=== PATIENT | female | born 1980 | race Caucasian/White ===

== ENCOUNTER 2018-11-25 14:01 | Emergency (ER) | payer MEDICAID ==
[2018-11-25 14:23] VITALS: BP 139/72
--- NOTE | 2018-11-25 14:46 | EDM.PDOC ---
ED HPI GENERAL MEDICAL PROBLEM - General Chief Complaint: ENT Problem Stated Complaint: TOOTH ACHE Time Seen by Provider: 11/25/18 14:40 Source of Information: Reports: Patient History Limitations: Reports: No Limitations - History of Present Illness INITIAL COMMENTS - FREE TEXT/NARRATIVE: pt arrived with a sore throat and painful lower molar that was filled 3 weeks ago. She has a very carrious upper molar that needs to be pulled and right now is painful. 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: Hematologic History: Reports: Blood Transfusion(s) - Infectious Disease History Infectious Disease History: Reports: Chicken Pox - Past Surgical History Female Surgical History: Reports: Section, Tubal Ligation Social & Family History - Tobacco Use Smoking Status *Q: Current Every Day Smoker Years of Tobacco use: 20 Packs/Tins Daily: 1 Used Tobacco, but Quit: No Second Hand Smoke Exposure: Yes - Caffeine Use Caffeine Use: Reports: Soda - Recreational Drug Use Recreational Drug Use: No ED ROS ENT - Review of Systems Review Of Systems: See Below Constitutional: Reports: No Symptoms HEENT: Reports: Dental Pain, Other ( sore throat. ) Respiratory: Reports: No Symptoms Cardiovascular: Reports: No Symptoms Endocrine: Reports: No Symptoms GI/Abdominal: Reports: No Symptoms : Reports: No Symptoms Musculoskeletal: Reports: No Symptoms Skin: Reports: No Symptoms ED EXAM, ENT - Physical Exam Exam: See Below Text/Narrative:: pt arrived with painful teeh. A right lower molar which was filled by Dr Erickson 3 weeks ago. She has a carrious rt upper molar that needs to be pulled She also has a sore throat on the rt side. Exam Limited By: No Limitations General Appearance: Alert, Anxious Ears: Normal TMs Nose: Normal Inspection Mouth/Throat: Other ( rt tonsil is red and swollen. ) Head: Atraumatic Neck: Normal Inspection Respiratory/Chest: No Respiratory Distress Course - Vital Signs Last Recorded V/S: Last Vital Signs Temp 36.3 C 11/25/18 14:21 Pulse 86 11/25/18 14:21 Resp 14 11/25/18 14:21 BP 139/72 11/25/18 14:21 Pulse Ox 96 11/25/18 14:21 - Orders/Labs/Meds Orders: Active Orders 24 hr Category Date Time Status CULTURE STREP A CONFIRMATION [RM] Stat Lab 11/25/18 15:03 Results STREP SCRN A RAPID W CULT CONF [RM] Stat Lab 11/25/18 15:03 Results - Re-Assessments/Exams Free Text/Narrative Re-Assessment/Exam: 11/25/18 15:19 strept was neg. Departure - Departure Time of Disposition: 15:17 Disposition: Home, Self-Care 01 Condition: Fair Clinical Impression: Acute bacterial pharyngitis, Infected tooth - Discharge Information Referrals: PCP,None [Primary Care Provider] - Forms: ED Department Discharge Care Plan Goals: referal to [facility] for Thursday. ., amoxicillin 500mg tid, tramodol 50 mg q6h for pain - My Orders Last 24 Hours: My Active Orders 11/25/18 15:03 CULTURE STREP A CONFIRMATION [RM] Stat STREP SCRN A RAPID W CULT CONF [RM] Stat - Assessment/Plan Last 24 Hours: My Active Orders 11/25/18 15:03 CULTURE STREP A CONFIRMATION [RM] Stat STREP SCRN A RAPID W CULT CONF [RM] Stat
== END 2018-11-25 15:36 | disposition home or self-care (01) ==
LOC: JP.ED 14:01
DX: K04.7 Periapical abscess without sinus (principal); J02.8 Acute pharyngitis due to other specified organisms; F17.210 Nicotine dependence, cigarettes, uncomplicated; Z88.1 Allergy status to other antibiotic agents
CPT/HCPCS: 87081; 87430; 99282

== ENCOUNTER 2020-02-04 19:29 | Emergency (ER) | payer MEDICAID ==
[2020-02-04 19:45] VITALS: BP 135/83; PULSE 92
[2020-02-04] MEDS ORDERED: Naproxen 250 MG Tab PO STA (20:14)
--- NOTE | 2020-02-04 20:14 | EDM.PDOC ---
ED HPI GENERAL MEDICAL PROBLEM - General Chief Complaint: ENT Problem Stated Complaint: BROKEN TOOTH/PAIN Time Seen by Provider: 02/04/20 20:03 Source of Information: Reports: Patient History Limitations: Reports: No Limitations - History of Present Illness INITIAL COMMENTS - FREE TEXT/NARRATIVE: Yvonne presents to [place] ER for evaluation of bilateral mouth pain. Left worse than right. Patient has two teeth chipped to gumline right and left upper premolar which have been bothersome for a few months. Patient has a new chipped tooth left lower jaw earlier this week which has been causing continued pain despite Tylenol and Ibuprofen on a regular basis. Patient has been unable to sleep due to pain the last few nights. 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 ED EXAM, ENT - Physical Exam Exam: See Below Exam Limited By: No Limitations General Appearance: Alert, WD/WN, No Apparent Distress Eye Exam: Bilateral Eye: EOMI, Normal Inspection Ears: Normal External Exam, Hearing Grossly Normal Nose: Normal Inspection Mouth/Throat: Normal Inspection. No: Normal Teeth (right and left upper premolar chipped to gumline with small piece of enamal remaining. Left lower first molar with 1/4 of tooth chipped off to dentin (pulp no visualized). No gumline swelling or abscess palpated along any of the three broke teeth.) Neck: Normal Inspection Respiratory/Chest: No Respiratory Distress Cardiovascular: Normal Peripheral Pulses Neurological: Alert, Oriented, CN II-XII Intact, Normal Cognition, Normal Gait, Normal Reflexes, No Motor/Sensory Deficits Psychiatric: Normal Affect, Normal Mood Course - Vital Signs Last Recorded V/S: Last Vital Signs Temp 35.7 C L 02/04/20 20:06 Pulse 92 02/04/20 20:06 Resp 16 02/04/20 20:06 BP 135/83 02/04/20 20:06 Pulse Ox 98 02/04/20 20:06 - Orders/Labs/Meds Meds: Medications Discontinued Medications Generic Name Dose Route Start Last Admin Trade Name Freq PRN Reason Stop Dose Admin Naproxen 500 mg 02/04/20 20:14 Naprosyn PO 02/04/20 20:15 ONETIME STA Departure - Departure Time of Disposition: 20:35 Disposition: Home, Self-Care 01 Clinical Impression: Fracture of tooth, Acute pain of mouth - Discharge Information Prescriptions: clindamycin HCL [Cleocin HCl] 300 mg PO TID 10 Days #30 capsule Naproxen [Naprosyn] 500 mg PO Q8HR PRN 14 Days #30 tablet PRN Reason: Pain Chlorhexidine Gluconate 0.12% [Peridex 0.12% Rinse] 15 ml MM BID 10 Days #480 ml Instructions: Dental Abscess, Tooth Injuries Referrals: PCP,None [Primary Care Provider] - Forms: ED Department Discharge Additional Instructions: 1. ANTIBIOTIC DIRECTED. Antibiotics Clindamycin 300mg TID x 10 days for dental infection and prevention of abscess. 2. NAPROXEN 500mg every 8-12 hours OR IBUPROFEN 600-800mg every 6-8 hours WITH FOOD DIRECTED FOR INFLAMMATION, PAIN AND SWELLING. 3. BUPIVACAINE DENTAL BLOCK WILL LAST UP TO 48 HOURS AND MAY NOT COME BACK IF TAKING ANTIBIOTIC AND IBUPROFEN/NAPROXEN. 4. Tylenol (Acetaminophen) every 6-8 hours for mild to moderate pain 5. CALL YOUR DENTIST OF CHOICE FOR AVAILABLE APPOINTMENT. IF YOU DO NOT HAVE A DENTIST, YOU WILL BE GIVEN THE PHONE NUMBER FOR LOCAL CAREERS COUNSELLOR DENTIST. You were referred to [facility] in [place] for February 05 at 8 am. Please call at 8am Thursday if you are unable to be seen to set up an alternate day and time for visit. 6. Return for repeat evaluation if increase, changes, new or worsen symptoms. 7. Note for work: [place] written. Discharge Instructions Dental Pain You have been seen today for a toothache. Your pain may be caused by an exposed nerve, an infection (pulpitis), a root abscess (pocket of pus), or other problems. You will need to see a dentist for a solution to your tooth problem. Emergency Department care is only to help control your problem until you can see a dentist; we cannot provide complete dental care. Today, we did not find any sign that your toothache was caused by any dangerous or life-threatening condition, but sometimes symptoms develop over time and cannot be found during an emergency visit, so it is very important that you follow up with your dentist. Please follow-up as instructed by your provider today. Return to the clinic or Local Emergency Department if: You develop a new fever over 100.4F. You cannot open your mouth normally, cannot move your tongue well, or cannot swallow. You have new or increased swelling of your face or neck. You develop drainage of pus or foul smelling material from around your tooth. What can I do to help myself? Take any antibiotic the provider may have prescribed for you today. Avoid very hot or very cold foods as both can cause pain. Make an appointment to see a dentist as soon as possible. Dentists are generally not on-staff at hospitals so we cannot refer to you to dentist but we may be able to provide a list of dental clinics to help you. If you were given a prescription for medicine here today, be sure toread all of the information (including the package insert) that comes with your prescription. This will include important information about the medicine, its side effects, and any warnings that you need to know about. The pharmacist who fills the prescription can provide more information and answer questions you may have about the medicine. If you have questions or concerns that the pharmacist cannot address, please call or return to the Emergency Department. Remember that you can always come back to the Emergency Department if you are not able to see your regular provider in the amount of time listed above, if you get any new symptoms, or if there is anything that worries you. Sepsis Event Note (ED) - Focused Exam Vital Signs: Vital Signs Temp Pulse Resp BP Pulse Ox 02/04/20 20:06 35.7 C L 92 16 135/83 98 02/04/20 19:44 35.7 C L 92 16 135/83 98
== END 2020-02-04 20:55 | disposition home or self-care (01) ==
LOC: JP.ED 19:29
DX: K03.81 Cracked tooth (principal); Z88.1 Allergy status to other antibiotic agents
CPT/HCPCS: 99282; A9270

== ENCOUNTER 2023-11-04 11:38 | Emergency (ER) | payer MEDICAID ==
[2023-11-04 11:48] VITALS: BP 138/95; PULSE 104
[2023-11-04 12:34] LABS: APPEARANCE,URINE SLIGHTLY CLOUDY (CLEAR); BILIRUBIN,URINE NEGATIVE (NEGATIVE); COLOR,URINE YELLOW (YELLOW); GLUCOSE,URINE NEGATIVE (NEGATIVE); KETONES,URINE NEGATIVE (NEGATIVE); LEUKOCYTE ESTERASE,URINE TRACE (NEGATIVE); NITRITE,URINE NEGATIVE (NEGATIVE); OCCULT BLOOD,URINE NEGATIVE (NEGATIVE); PROTEIN,URINE NEGATIVE (NEGATIVE); UROBILINOGEN,URINE 0.2 EU/dL (0.2-1.0)
[2023-11-04 12:43] LABS: AMORPHOUS SEDIMENT,URINE MANY; BACTERIA,URINE RARE; EPITHELIAL CELLS,URINE FEW; MUCUS,URINE NOT SEEN; RBC,URINE NOT SEEN (0-5); WBC,URINE 0-5 (0-5)
== END 2023-11-04 13:11 | disposition home or self-care (01) ==
LOC: JP.ED 11:38
DX: N39.0 Urinary tract infection, site not specified (principal); F17.210 Nicotine dependence, cigarettes, uncomplicated; Z88.1 Allergy status to other antibiotic agents; Z79.899 Other long term (current) drug therapy
CPT/HCPCS: 81001; 87086; 99284